=== PATIENT | female | born 1990 | race Caucasian/White ===

== ENCOUNTER 2016-10-25 18:32 | Inpatient (IN) | payer BC, OTHER ==
--- NOTE | ~2016-10-25 | PA ---
Unit #: [id number] #: [id number] Patient: MERYL BONNER [id number] [place] [address] [id number] MR#: [id number] NAME: MERYL BONNER. ROOM: P177 Age: 26 Sex: F Admission Date: 10/25/2016 : 1990 Date of Assessment: 10/26/2016 Attending Physician: Chacorta Berry M.D. Admitting Physician: Chacorta Berry M.D. Primary Care Physician: Primary Care Physician No PSYCHIATRIC ASSESSMENT IDENTIFYING INFORMATION The patient is a 26-year-old single white female admitted to the hospital after she had inadvertently overdosed on heroin and methamphetamine. CHIEF COMPLAINT None given. INFORMANT Patient, reliability is good. HISTORY OF PRESENT ILLNESS The patient is a 26-year-old unmarried white female who was admitted to the [address] [place] [address] after she had been released from a medical hospital where she had been treated for heroin and methamphetamine overdose. The patient reports that she believes she received adulterated heroin and was found down by her mother. She vehemently states that this was not a suicide attempt and denies prior suicide attempts or gestures. She reports that she has been addicted to heroin and methamphetamine from the past year and uses via intranasal insufflation. She is expressing interest in going [facility] completion of detox and discharge from this facility. The patient lives with her mother, stepfather, and 3 children. The children's father of a drug overdose in June. The patient is presently unemployed. She was admitted with a CIWA score of 22. She currently denies suicidal or homicidal ideation and denies recent changes in sleep or appetite. She is prescribed Lexapro 20 mg daily for depression. PAST PSYCHIATRIC HISTORY As above. PAST MEDICAL HISTORY Significant for the aforementioned overdose. MEDICATIONS Lexapro. ALLERGIES None. FAMILY HISTORY Noncontributory. SOCIAL HISTORY Unit #: [id number] #: [id number] Patient: MERYL BONNER The patient lives with her mother, stepfather, and 3 children. SUBSTANCE ABUSE HISTORY As noted previously. MENTAL STATUS EXAMINATION Examination at this time reveals the patient to be a well-developed well-nourished white female appearing her stated age. She is in no apparent physical distress at the time of examination. She is awake, alert, and oriented in all spheres. Her mood is mildly dysphoric, her affect congruent. Speech is generally well coherent. There are no gross deficits in memory or cognition are noted. Intelligence is judged to be in the average range based on fund of knowledge. The patient is cooperative throughout the interview. She is currently denying suicidal or homicidal ideation or psychotic features. Judgment and insight appear to be intact. ASSETS AND LIABILITIES The patient's assets: Motivation for change. Liabilities: Lack of resources. DIAGNOSTIC IMPRESSION 1. Methamphetamine use disorder. 2. Opioid use disorder. 3. Dysthymic disorder. TREATMENT PLAN The patient remains hospitalized for safety and stabilization. We will watch for any signs or symptoms of further withdrawal, but given the fact that the patient overdosed on Monday, she should have little more in the way of opioid withdrawal symptoms. The patient appears to have begun making plans for post-discharge disposition, i.e., [facility], and discharge will likely take place within the next couple of days. Dictated by... Chacorta Berry M.D. ZAINAB/mario TD: 10/26/2016 13:42 JOB #: [id number] PSYCHIATRIC ASSESSMENT Page 1 of 1 X Chacorta Berry MD X PSYCHIATRIC ASSESSMENT
--- NOTE | ~2016-10-25 | HP ---
Unit #: [id number] #: [id number] Patient: MERYL BONNER [id number] [place] [address] [id number] MR#: [id number] NAME: MERYL BONNER. ROOM: 77 Age: 26 Sex: F Admission Date: 10/25/2016 : 1990 Attending Physician: Chacorta Berry M.D. Admitting Physician: Chacorta Berry M.D. Primary Care Physician: Primary Care Physician No HISTORY AND PHYSICAL HISTORY OF PRESENT ILLNESS Meryl is a 26-year-old admitted to [facility] because of her polysubstance abuse which includes snorting Heroin and Methamphetamine. PAST MEDICAL HISTORY 1. Long history of poly illicit substance abuse. PAST SURGICAL HISTORY 1. T&A. 2. Cholecystectomy. 3. Tubal ligation. ALLERGIES No known drug allergies. SOCIAL HISTORY She smokes 1 pack per day. Denies alcohol, admits to a long history of illicit substance abuse to include Meth and Heroin. FAMILY HISTORY Medically noncontributory. REVIEW OF SYSTEMS CONSTITUTIONAL: No fever or chills. HEENT: Denies any sore throat, ear pain or runny nose. CARDIOVASCULAR: Denies chest pain, irregular heart rhythm or palpitations. CHEST: Denies shortness of breath or cough. No hemoptysis. GASTROINTESTINAL: Denies nausea, vomiting, diarrhea or chronic constipation. ENDOCRINE: Denies history of increased thirst or urination. No recent significant weight loss or gain. GENITOURINARY: Denies dysuria, frequency, or hematuria. SKIN: Denies any rashes. HEMATOLOGIC: Denies history of increased bleeding or bruising. MUSCULOSKELETAL: Denies any hot, swollen joints. No generalized muscle pain. NEUROLOGIC: Denies problems with vision or speech. No frequent, severe headaches. No numbness, tingling or weakness in any extremities. Denies loss of bladder or bowel control. CURRENT MEDICATIONS Detox protocol. Lexapro 20 mg q day. Unit #: [id number] #: [id number] Patient: MERYL BONNER PHYSICAL EXAMINATION GENERAL: Alert, well nourished, in no apparent distress. VITAL SIGNS: B/P 100/48, heart rate 80, respirations 16, temperature 98.6. WEIGHT: Weight 140 pounds, height 5'2". SKIN: Warm and dry without rash or lesion. HEENT: Normocephalic. TMs not viewed. Oral and nasal passages clear. Conjunctivae clear. PERRLA. EOMs intact. NECK: Supple without lymphadenopathy or thyromegaly. HEART: Regular rate and rhythm without murmur. LUNGS: Clear. ABDOMEN: Soft, nontender. : Not done. EXTREMITIES: No evidence of cyanosis, clubbing or edema. Moves all without focal deficit. NEUROLOGICAL: Grossly within normal limits. Cranial Nerves: II: Visual carcamo are intact. III, IV AND : Extraocular movements are intact. Pupils are equal, round and reactive to light. V: Facial sensation is grossly normal. VII: Facial movements and expression are normal. VIII: Auditory acuity grossly intact. IX, X: Uvula is midline. Phonation is normal. XI: Patient shrugs shoulders and turns head normally. XII: Tongue protrudes in the midline. Sensory and Motor Function: Sensory and motor sensation is grossly normal. Motor: moves all extremities well. Coordination: Gait is normal. Deep Tendon Reflexes: Intact. MEDICAL ASSESSMENT AND PLAN 1. Psychiatric admission. RECOMMENDATIONS 1. Psychiatric, per psychiatrist. 2. I see no contraindications to participating in facility's activities. MEDICAL PROGNOSIS Good. MEDICAL CONDITION Stable. Dictated by... Ninfa Velásquez/janett TD: 10/27/2016 04:45 JOB #: [id number] Unit #: [id number] #: [id number] Patient: MERYL BONNER HISTORY AND PHYSICAL Page 1 of 1 X Michelle Sepulveda HISTORY AND PHYSICAL
--- NOTE | ~2016-10-25 | DS ---
Unit #: [id number] #: [id number] Patient: MERYL BONNER [id number] [facility] [address] [place] [address] [id number] I MR#: [id number] NAME: MERYL BONNER. ROOM: [facility] Age: 26 Sex: F Admission Date: 10/25/2016 : 1990 Discharge Date: Attending Physician: Chacorta Berry M.D. Primary Care Physician: Primary Care Physician No DISCHARGE SUMMARY REASON FOR ADMISSION The patient is a 26-year-old single white female, admitted to the [facility] unit following a recent overdose of heroin and methamphetamine. HOSPITAL COURSE The patient was admitted to the [facility] unit and placed on routine detoxification protocol for opioids. She exhibited a little in the way of signs or symptoms of withdrawal. She was continued on Lexapro 20 mg daily for depression. By 10/27/2016, the patient was in bright spirits and requested discharge to take the following day so that she would go to "[facility]" in [place], [place]. Discharge was ordered to take place. FINAL DIAGNOSES Methamphetamine use disorder, opioid use disorder, dysthymic disorder. DISPOSITION ON DISCHARGE The patient is discharged on the following medications; Lexapro 20 mg daily for depression. DISCHARGE INSTRUCTIONS No dietary or physical restrictions were placed upon the patient at the time of discharge. FOLLOWUP Followup will take place through the auspices of "[facility]" in [place], [place]. PROGNOSIS The patient's prognosis is considered fair. Dictated by... Chacorta Berry M.D. ZAINAB/andie TD: 10/27/2016 23:36 JOB #: [id number] Unit #: [id number] #: [id number] Patient: MERYL BONNER DISCHARGE SUMMARY Page 1 of 1 X Chacorta Berry MD X DISCHARGE SUMMARY
[2016-10-26 09:32] LABS: BASOPHIL% 0.8 % (0-2.5); EOSINOPHIL# 0.4 X10e3 (0-0.7); HEMOGLOBIN 12.1 gm/dL (12.0-16.0); LYMPHOCYTE# 2.7 X10e3 (1.0-3.5); LYMPHOCYTE% 48.7 % (17.0-45.0); MEAN CELL VOLUME 83.2 FL (83-96); MEAN CORPUSCULAR HEMOGLOBIN 26.5 PG (28-34); MEAN CORPUSCULAR HGB CONC 31.9 g/dL (30-36); MEAN PLATELET VOLUME 8.5 FL (6.5-11.5); MONOCYTE# 0.4 X10e3 (0-1.0); MONOCYTE% 7.5 % (3.0-12.0); PLATELET COUNT 245 X10e3 (140-420); RED BLOOD COUNT 4.57 X10e (3.90-5.30); RED CELL DISTRIBUTION WIDTH 16.3 % (11.0-15.5); WHITE BLOOD COUNT 5.5 X10e3 (4.0-10.5)
[2016-10-26 09:36] LABS: DIFF IND NO
[2016-10-26 10:38] LABS: ALBUMIN SERUM 3.7 g/dL (3.5-5.0); BILIRUBIN,TOTAL 0.4 mg/dL (0.2-2.0); BUN/CREATININE RATIO 16.66; CALCIUM SERUM 8.7 mg/dL (8.4-10.2); CREATININE SERUM 0.6 mg/dL (0.6-1.4); GLOM FILT RATE Estimated 126.7 mL/min (>60); POTASSIUM 4.3 mmol/L (3.5-5.1); PROTEIN TOTAL SERUM 6.2 g/dL (6.0-8.3)
[2016-10-26 12:33] LABS: URINE BILIRUBIN NEG (NEG); URINE BLOOD NEG (NEG); URINE COLOR YELLOW; URINE GLUCOSE NEG (NEG); URINE KETONE NEG (NEG); URINE LEUKOCYTE ESTERASE 1+ (NEG); URINE NITRATE NEG (NEG); URINE PROTEIN NEG (NEG); URINE SPECIFIC GRAVITY 1.023 (1.003-1.035)
[2016-10-26 12:36] LABS: URINE BACTERIA AUWI 1+ (NEGATIVE); URINE SQUAMOUS EPITHELIAL CELL FEW /[HPF]
[2016-10-26 12:58] LABS: AMPHETAMINE POS (NEG); BARBITURATES NEG (NEG); BENZODIAZEPINES NEG (NEG); COCAINE NEG (NEG); MARIJUANA NEG (NEG); OPIATES NEG (NEG); TRICYCLIC ANTIDEPRESSANTS NEG (NEG); U METHADONE NEG (NEG)
[2016-10-26 13:19] LABS: URINE APPEARANCE CLEAR
[2016-10-26 13:20] LABS: URINE MUCUS PRESENT
[2016-10-26 13:22] LABS: URBCS1 AUWI 0-2 /[HPF] (0-2)
[2016-10-30 07:02] LABS: HA AB IGM (HEPPAN) Nonreactive (()); HB CORE AB IGM (HEPPAN) Nonreactive (Nonreactive); HB S AG (HEPPAN) Nonreactive (Nonreactive); HEP C AB (HEPPAN) Nonreactive (Nonreactive); HEP C AB SIGNAL TO CUTOFF 0.01 ratio (<1.00)
== END 2016-10-28 10:50 | disposition home or self-care (01) | DRG 881 ==
LOC: P1E 18:32 → POF 18:52 → P1E 18:53
PROVIDERS: Specialist
DX: F34.1 Dysthymic disorder (principal); F15.20 Other stimulant dependence, uncomplicated; F10.20 Alcohol dependence, uncomplicated; F17.210 Nicotine dependence, cigarettes, uncomplicated; T40.1X1D Poisoning by heroin, accidental (unintentional), subsequent encounter; T43.621D Poisoning by amphetamines, accidental (unintentional), subsequent encounter
CPT/HCPCS: 80053; 80074; 80307; 81003; 84703; 85025; 86592; 87806